=== PATIENT | female | born 1935 | race African-American/Black ===

== ENCOUNTER 2017-02-25 17:23 | Emergency (ER) | payer MEDICARE, BC ==
[~2017-02-25] VITALS: Ht 167.6 cm; Wt 63.5 kg
[~2017-02-25 17:23] MED LIST: ALBU1.25 NEB; ALLO300T PO; AMLO2.5T2 PO; ASPI-482 PO; ATOR10TA60 PO; DIVA500T2 PO; FERR325T3 PO; MEMA5TAB PO; METO50TA2 PO; MIDO5TAB PO; OMEP20TA8 PO; RISP1TAB3 PO; SERT50TA PO; SUCR1ORA11 PO
--- NOTE | 2017-02-25 17:44 | PHYS DOC ---
Past Medical History Past Medical History: Dementia Additional Past Medical Histor: chronic renal insufficiency Alcohol Use: None Social History Lives at home with her . Is currently on hospice care. Adult General Chief Complaint Chief Complaint: ALTERED MENTAL STATUS HPI HPI Patient is a 81 year old female who presents with altered mental status per the intermediate patient was sent here by EMS. History physical review of systems are limited by patient is altered mentation and refusal answer questions. Unclear as to onset of altered mentation, apparently has dementia. Unknown if has fever or any other complaints leading up to this. Nurse will try to communicate with the intermediate nurse for further details. Review of Systems Review of Systems Unable to obtain secondary to patient's refusal to answer questions or cooperate Current Medications Current Medications Current Medications Medications (Trade) Dose Ordered Sig/Roman Start Time Stop Time Status Last Admin Dose Admin Sodium Chloride 500 ml @ 500 mls/hr 1X ONCE 02/25/17 17:45 02/25/17 18:44 DC 02/25/17 18:15 500 MLS/HR Allergies Allergies Allergies Coded Allergies Type Severity Reaction Last Updated Verified lisinopril Allergy Intermediate 02/25/17 No nebivolol Allergy Intermediate 02/25/17 No Physical Exam Physical Exam Constitutional: Well developed, well nourished, no acute distress, non-toxic appearance. [] HENT: Normocephalic, atraumatic, bilateral external ears normal, oropharynx moist, no oral exudates, nose normal. [] Eyes: PERRLA, EOMI, conjunctiva normal, no discharge. [] Neck: Normal range of motion, no tenderness, supple, no stridor. [] Cardiovascular:Heart rate regular rhythm, no murmur [] Lungs & Thorax: Bilateral breath sounds clear to auscultation [] Abdomen: Bowel sounds normal, soft, no tenderness, no masses, no pulsatile masses. [] Skin: Warm, dry, no erythema, no rash. [] Back: No tenderness, no CVA tenderness. [] Extremities: No tenderness, no cyanosis, no clubbing, ROM intact, no edema. [] Neurologic: Awake keeps eyes closed but opens them to verbal commands slightly, normal motor function, normal sensory function, no focal deficits noted. [] Psychologic: Calm [] Current Patient Data Vital Signs Vital Signs Date Time Temp Pulse Resp B/P (MAP) Pulse Ox O2 Delivery O2 Flow Rate FiO2 02/25/17 18:32 69 173/82 (112) 99 Room Air 02/25/17 17:23 97.9 16 97.9 Lab Values Laboratory Tests Test 02/25/17 17:40 02/25/17 17:50 White Blood Count 7.5 x10^3/uL (4.0-11.0) Red Blood Count 3.94 x10^6/uL (3.50-5.40) Hemoglobin 10.5 g/dL (12.0-15.5) L Hematocrit 33.4 % (36.0-47.0) L Mean Corpuscular Volume 85 fL (79-100) Mean Corpuscular Hemoglobin 27 pg (25-35) Mean Corpuscular Hemoglobin Concent 32 g/dL (31-37) Red Cell Distribution Width 17.7 % (11.5-14.5) H Platelet Count 216 x10^3/uL (140-400) Neutrophils (%) (Auto) 83 % (31-73) H Lymphocytes (%) (Auto) 10 % (24-48) L Monocytes (%) (Auto) 5 % (0-9) Eosinophils (%) (Auto) 1 % (0-3) Basophils (%) (Auto) 1 % (0-3) Neutrophils # (Auto) 6.2 x10^3uL (1.8-7.7) Lymphocytes # (Auto) 0.7 x10^3/uL (1.0-4.8) L Monocytes # (Auto) 0.4 x10^3/uL (0.0-1.1) Eosinophils # (Auto) 0.0 x10^3/uL (0.0-0.7) Basophils # (Auto) 0.1 x10^3/uL (0.0-0.2) Sodium Level 149 mmol/L (136-145) H Potassium Level 4.0 mmol/L (3.5-5.1) Chloride Level 112 mmol/L (98-107) H Carbon Dioxide Level 27 mmol/L (21-32) Anion Gap 10 (6-14) Blood Urea Nitrogen 41 mg/dL (7-20) H Creatinine 1.9 mg/dL (0.6-1.0) H Estimated GFR (Cockcroft-Gault) 30.9 BUN/Creatinine Ratio 22 (6-20) H Glucose Level 172 mg/dL (70-99) H Calcium Level 8.5 mg/dL (8.5-10.1) Total Bilirubin 0.2 mg/dL (0.2-1.0) Aspartate Amino Transferase (AST) 12 U/L (15-37) L Alanine Aminotransferase (ALT) 14 U/L (14-59) Alkaline Phosphatase 90 U/L (46-116) Troponin I Quantitative 0.045 ng/mL (0.000-0.055) Total Protein 6.4 g/dL (6.4-8.2) Albumin 2.9 g/dL (3.4-5.0) L Albumin/Globulin Ratio 0.8 (1.0-1.7) L Urine Color Yellow Urine Clarity Clear Urine pH 6.0 Urine Specific [place] 1.015 Urine Protein 100 mg/dL (NEG-TRACE) Urine Glucose (UA) Negative mg/dL (NEG) Urine Ketones (Stick) Negative mg/dL (NEG) Urine Blood Negative (NEG) Urine Nitrite Negative (NEG) Urine Bilirubin Negative (NEG) Urine Urobilinogen Dipstick 1.0 mg/dL (0.2 mg/dL) Urine Leukocyte Esterase Small (NEG) Urine RBC 0 /HPF (0-2) Urine WBC Occ /HPF (0-4) Urine Squamous Epithelial Cells Occ /LPF Urine Amorphous Sediment Present /HPF Urine Bacteria 0 /HPF (0-FEW) Urine Hyaline Casts Occasional /HPF Urine Granular Casts Occasional /HPF Laboratory Tests 02/25/17 17:40 Laboratory Tests 02/25/17 17:40 EKG EKG EKG sinus rhythm rate of 70 no STEMI QTC 461 my interpretation [] Radiology/Procedures Radiology/Procedures Chest x-ray; cardiomegaly with interpretation CT head: [] Atrophy per radiology report Course & Med Decision Making Course & Med Decision Making Pertinent Labs and Imaging studies reviewed. (See chart for details) We will hydrate with IV fluids CT had chest x-ray check labs including a urine looking for abnormalities. [According to the patient has chronic renal insufficiency. She is currently on hospice care. Labs showed some element of hypernatremia this was addressed with 500 mL's of IV fluids. Creatinine was elevated around 2. Patient is hospice we will send him back home. Coronary the she is at baseline.] Dragon Disclaimer Dragon Disclaimer This electronic medical record was generated, in whole or in part, using a voice recognition dictation system. Departure Departure Impression: Primary Impression: Hyponatremia Additional Impressions: Chronic renal insufficiency Dehydration Chronic dementia Disposition: HOME, SELF-CARE Condition: STABLE Referrals: DAVIDSON DENNY MD (PCP) Patient Instructions: Dehydration, Elderly, Qetb-mc-Help, Dementia, Easy-to- Read Problem Qualifiers MIMI FLOWER MD Feb 25, 2017 17:44
[2017-02-25] MEDS ORDERED: IV NORMAL SALINE 500ML BAG 500 ML IV ONE (17:45)
[2017-02-25 17:55] LABS: BASO # 0.1 x10^3/uL (0.0-0.2); BASO % 1 % (0-3); EOS % 1 % (0-3); HEMATOCRIT 33.4 % (36.0-47.0); HEMOGLOBIN 10.5 g/dL (12.0-15.5); LYMPH # 0.7 x10^3/uL (1.0-4.8); LYMPH % 10 % (24-48); MEAN CORPUSCULAR HEMOGLOBIN 27 pg (25-35); MEAN CORPUSCULAR HGB CONC 32 g/dL (31-37); MEAN CORPUSCULAR VOLUME 85 fL (79-100); MONO % 5 % (0-9); NEUT % 83 % (31-73); PLATELET COUNT 216 x10^3/uL (140-400); RED BLOOD COUNT 3.94 x10^6/uL (3.50-5.40); RED CELL DISTRIBUTION WIDTH 17.7 % (11.5-14.5); WHITE BLOOD COUNT 7.5 x10^3/uL (4.0-11.0)
[2017-02-25 18:03] LABS: BILIRUBIN,URINE NEGATIVE (NEG); GLUCOSE,URINE NEGATIVE (NEG); NITRITE,URINE NEGATIVE (NEG); PROTEIN,URINE 100 mg/dL (NEG-TRACE)
[2017-02-25 18:05] LABS: CALCIUM 8.5 mg/dL (8.5-10.1); CREATININE 1.9 mg/dL (0.6-1.0); GFR 30.9
[2017-02-25 18:11] LABS: ALBUMIN 2.9 g/dL (3.4-5.0); ALBUMIN/GLOBULIN RATIO 0.8 (1.0-1.7); TOTAL BILIRUBIN 0.2 mg/dL (0.2-1.0); TOTAL PROTEIN 6.4 g/dL (6.4-8.2)
[2017-02-25 18:16] LABS: BACTERIA,URINE 0 /HPF (0-FEW); RBC,URINE 0 /HPF (0-2); SQUAMOUS EPITHELIAL CELL,UR OCC /LPF; WBC,URINE OCC /HPF (0-4)
--- NOTE | 2017-02-25 18:32 | RAD ---
PQRS STATEMENT: One or more of the following in the visualized dose reduction techniques were utilized for this study: 1. Automatic exposure control, 2. Adjustment of the mA and/or kV according to patient size, 3. Use of iterative reconstruction technique CT HEAD INDICATION: ams. previous 10/07/09. COMPARISON: CT head from 10/07/2009 TECHNIQUE: 5 mm contiguous axial images were obtained from the skull base to the vertex in both bone and soft tissue algorithm. FINDINGS: There is no acute intracranial hemorrhage or extra-axial fluid collection. When compared to the previous exam from 10/07/2009, there has been enlargement of the lateral ventricles. It is indeterminate whether this is due to hydrocephalus or progressive cerebral atrophy. No evidence for midbrain or pontine mass. No midline shift. No evidence for herniation. Globes and orbits are within normal limits. Paranasal sinuses and mastoid air cells are clear. IMPRESSION: There has been enlargement of the lateral ventricles when compared to an exam from September 2009. It is indeterminate if this represents either hydrocephalus or sequelae of cerebral atrophy. Consider MRI for further evaluation. Correlate for signs and symptoms of normal pressure hydrocephalus. Electronically signed by: Jay Hamilton MD (02/25/2017 6:28 PM) [facility]
[2017-02-25 20:30] VITALS: BP 178/130
--- NOTE | 2017-02-26 06:38 | EKG ---
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
--- NOTE | 2017-02-26 08:16 | RAD ---
Portable chest, 02/25/2017: History: Altered mental status Comparison is made to a study from 12/12/2010. The heart is mildly enlarged. There is moderate calcific plaquing of the aorta. The pulmonary vascularity is normal. No pulmonary infiltrates are seen. There is no evidence of pleural fluid. IMPRESSION: 1. Mild cardiomegaly and aortic atherosclerosis. 2. No acute cardiopulmonary abnormality is detected.
== END 2017-02-25 20:31 | disposition home or self-care (01) ==
LOC: ER 17:23
DX: F03.90 Unspecified dementia, unspecified severity, without behavioral disturbance, psychotic disturbance, mood disturbance, and anxiety (principal); E86.0 Dehydration; E87.1 Hypo-osmolality and hyponatremia; N18.9 Chronic kidney disease, unspecified; Z88.8 Allergy status to other drugs, medicaments and biological substances
CPT/HCPCS: 36415; 70450; 71010; 80053; 81001; 84484; 85027; 87086; 93005; 99285; J7040; P9612